=== PATIENT | male | born 1950 | race Caucasian/White ===

== ENCOUNTER 2022-05-04 09:39 | Inpatient (IN) | payer MEDICARE, MEDICAID ==
[~2022-05-04] VITALS: Ht 317.5 cm; Wt 77.1 kg
[~2022-05-04 09:39] MED LIST: ASPI-1497 PO; CLOP-31 PO; ESOM2.5S PO; INSU100C11 SQ; LISI20TA31 PO; METFORMIN PO; PRAVASTATIN PO
[2022-05-04] MEDS ORDERED: ONDANSETRON HCL 4MG/2ML INJ IV STA (09:51)
[2022-05-04] MEDS ORDERED: MECLIZINE 25MG TABLET PO ONE (10:45)
[2022-05-04 10:56] LABS: BASOPHILS % 0.9 % (0.0-2.0); EOSINOPHILS % 2.2 % (0.0-5.0); HEMATOCRIT. 37.9 % (42.0-52.0); HEMOGLOBIN. 12.6 g/dL (14.0-18.0); LYMPHOCYTES % 11.5 % (20.0-50.0); MEAN CORPUSCULAR HEMOGLOBIN 31.2 pg (28.0-32.0); MEAN CORPUSCULAR VOLUME 93.7 fL (80.0-94.0); MEAN PLATELET VOLUME 8.4 fl (7.4-10.4); MONOCYTES % 10.3 % (2.0-8.0); NEUTROPHILS % 75.1 % (40.0-76.0); PLATELET 196 x1000/uL (130-400); RED BLOOD CELL COUNT 4.05 mill/uL (4.7-6.1); RED CELL DISTRIBUTION WIDTH 15.4 % (11.6-14.6)
[2022-05-04 11:00] LABS: CLARITY URINE CLEAR (CLEAR); COLOR URINE YELLOW (YELLOW); KETONES URINE NEGATIVE (NEGATIVE); LEUKOCYTE ESTERASE URINE NEGATIVE (NEGATIVE); NITRITE URINE NEGATIVE (NEGATIVE); OCCULT BLOOD URINE NEGATIVE (NEGATIVE); PH URINE 8.5 (4.5-8.0); PROTEIN URINE 2+ (NEGATIVE); SPECIFIC GRAVITY URINE 1.011 (1.005-1.030); UROBILINOGEN URINE 0.2 E.U./dL (0.2-1.0)
[2022-05-04 11:04] LABS: PROTHROMBIN TIME 10.9 sec (9.6-11.0)
[2022-05-04 11:06] LABS: CHLORIDE 103 mEq/L (98-107)
[2022-05-04] MEDS ORDERED: MECLIZINE 25MG TABLET PO PRN (12:45)
[2022-05-04] MEDS ORDERED: MAGNESIUM/ALUMINUM HYDROXIDE/SIMETHICONE 30ML UDC PO PRN (12:45)
[2022-05-04] MEDS ORDERED: PANTOPRAZOLE SODIUM 40 MG/VIAL IV SCH (12:45)
[2022-05-04] MEDS ORDERED: ZOLPIDEM TARTRATE 5MG TABLET PO PRN (12:45)
[2022-05-04] MEDS ORDERED: DEXTROSE 50% WATER 50ML SYRINGE IV PRN (12:45)
[2022-05-04] MEDS ORDERED: ACETAMINOPHEN 325MG TABLET PO PRN ×2 (12:45)
[2022-05-04] MEDS ORDERED: ONDANSETRON HCL 4MG/2ML INJ IV PRN (12:45)
[2022-05-04] MEDS ORDERED: CLONIDINE 0.1MG TABLET PO PRN (12:45)
[2022-05-04] MEDS ORDERED: DIPHENHYDRAMINE 50MG/ML VIAL IV PRN (12:45)
[2022-05-04] MEDS: INSULIN LISPRO 100 UNITS/ML SUBCUT SCH ×3 (12:50→21:46)
[2022-05-04] MEDS ORDERED: SODIUM CHLORIDE 0.9% 1,000 ML IV SCH (13:00)
[2022-05-04 13:42] VITALS: BP 149/81
[2022-05-04] MEDS: BLOOD SUGAR DIAGNOSTIC STRIP TEST SCH ×2 (17:20→21:43)
[2022-05-04 20:00] VITALS: BP 151/88
[2022-05-05] VITALS: BP 113/66
[2022-05-05 04:00] VITALS: BP 94/57
[2022-05-05 06:09] VITALS: BP 94/57
[2022-05-05] MEDS: BLOOD SUGAR DIAGNOSTIC STRIP TEST SCH (06:40)
[2022-05-05 06:58] LABS: BASOPHILS % 0.6 % (0.0-2.0); EOSINOPHILS % 2.5 % (0.0-5.0); HEMOGLOBIN. 12.2 g/dL (14.0-18.0); LYMPHOCYTES % 20.8 % (20.0-50.0); MEAN CORPUSCULAR HEMOGLOBIN 31.9 pg (28.0-32.0); MEAN CORPUSCULAR VOLUME 93.9 fL (80.0-94.0); MEAN PLATELET VOLUME 9.4 fl (7.4-10.4); MONOCYTES % 13.4 % (2.0-8.0); NEUTROPHILS % 62.7 % (40.0-76.0); PLATELET 182 x1000/uL (130-400); RED BLOOD CELL COUNT 3.83 mill/uL (4.7-6.1); RED CELL DISTRIBUTION WIDTH 15.4 % (11.6-14.6)
[2022-05-05 07:21] LABS: PHOSPHORUS 4.4 mg/dL (2.5-4.9)
[2022-05-05 07:50] VITALS: BP 116/69
== END 2022-05-05 08:00 | disposition home or self-care (01) | DRG 305 ==
LOC: ER 09:39 → 6WST 11:26 → EDBEDREQ 11:30 → EDBEDREQTM 11:30 → ENRESERV 11:35
PROVIDERS: ADMIT Internal Medicine; ATTEND Internal Medicine
DX: I16.9 Hypertensive crisis, unspecified (principal); N17.9 Acute kidney failure, unspecified; I12.9 Hypertensive chronic kidney disease with stage 1 through stage 4 chronic kidney disease, or unspecified chronic kidney disease; N18.9 Chronic kidney disease, unspecified; E11.22 Type 2 diabetes mellitus with diabetic chronic kidney disease; E78.00 Pure hypercholesterolemia, unspecified; I25.10 Atherosclerotic heart disease of native coronary artery without angina pectoris; Z88.8 Allergy status to other drugs, medicaments and biological substances; Z79.899 Other long term (current) drug therapy; Z95.1 Presence of aortocoronary bypass graft
CPT/HCPCS: 36415; 71045; 76770; 80048; 80053; 80197; 81003; 82962; 83036; 83735; 83880; 84100; 84484; 85025; 93005; 99285; C9113; J1815; J2405; J7030; J8597